=== PATIENT | female | born 1965 | race Caucasian/White ===

== ENCOUNTER 2017-10-03 08:29 | Outpatient (CLI) | payer BC | END 2017-10-03 08:30 | disposition home or self-care (01) | LOC: BICMAMMO 08:29 | PROVIDERS: ATTEND Family Medicine | DX: Z12.31 Encounter for screening mammogram for malignant neoplasm of breast (principal) | CPT/HCPCS: 77063; 77067 ==

== ENCOUNTER 2018-02-13 14:28 | Outpatient (CLI) | payer BC | END 2018-02-13 14:29 | disposition home or self-care (01) | LOC: BICULT 14:28 | PROVIDERS: ATTEND Family Medicine | DX: E04.1 Nontoxic single thyroid nodule (principal) | CPT/HCPCS: 76536 ==

== ENCOUNTER 2018-03-22 10:09 | Day surgery (SDC) | payer BC ==
[2018-03-21 13:19] VITALS: BMI 27.4
[2018-03-22] MEDS ORDERED: Sodium Bicarbonate 2.5 MEQ/5 ML VIAL ONE (10:22)
[2018-03-22] MEDS ORDERED: Lidocaine 1% PF 5 ML VIAL ONE (10:22)
[2018-03-22 11:01] VITALS: BP 123/80; TEMP 98.4
--- NOTE | 2018-03-22 11:58 | ULT ---
ULTRASOUND GUIDED FINE NEEDLE ASPIRATION THYROID: HISTORY: Thyroid nodule. COMPARISON: Thyroid ultrasound 02/13/18. FINDINGS: The patient is brought to the ultrasound suite. All questions were answered. The right neck was prepped and draped in normal sterile fashion. Approximately 2 mL of buffered Lidocaine was instilled into the superficial and deep soft tissues. U sing a 25-gauge needle, a total of 4 fine needle aspirations were performed. The patient tolerated t he procedure well without complication. IMPRESSION: Technically successful ultrasound-guided thyroid fine needle aspiration. POS: KATHERINE
== END 2018-03-22 11:10 | disposition home or self-care (01) ==
LOC: ULT 10:09
PROVIDERS: ATTEND Specialist
PROC: 0G9K3ZX Drainage of Thyroid Gland, Percutaneous Approach, Diagnostic (ICD-10-PCS; principal; 2018-03-22)
DX: E04.1 Nontoxic single thyroid nodule (principal); E11.9 Type 2 diabetes mellitus without complications; E78.5 Hyperlipidemia, unspecified; I10 Essential (primary) hypertension; F41.9 Anxiety disorder, unspecified; Z79.82 Long term (current) use of aspirin; Z79.4 Long term (current) use of insulin; Z79.899 Other long term (current) drug therapy
CPT/HCPCS: 10022; 76942; 88173; 88305; J2001

== ENCOUNTER 2019-03-04 07:50 | Outpatient (CLI) | payer BC ==
--- NOTE | 2019-03-04 08:20 | ULT ---
COMPLETE ABDOMEN ULTRASOUND INDICATION: Elevated LFTs TECHNIQUE: Grayscale, color Doppler and spectral Doppler were obtained of the abdomen. COMPARISON: None FINDINGS: Liver: Hyperechoic. No focal hepatic lesion. Main portal vein: Patent with appropriate hepatopedal flow Pancreas: Visualized aspects appeared normal. Gallbladder: Surgically absent. Common bile duct: 7 mm. Right kidney: The right kidney measured 11.9 x 5.8 x 5.1 cm cm. No focal renal lesion or hydronephros is is evident. Left kidney: The left kidney measured 11.5 x 5.4 x 5.4 cm cm. No focal renal lesion or hydronephrosis is demonstrated. Aorta and IVC: Appeared within normal limits. Spleen: 10.6 cmcm in length. No focal splenic lesion is evident. Free fluid: None. IMPRESSION: 1. Fatty liver. 2. Cholecystectomy.
== END 2019-03-04 07:51 | disposition home or self-care (01) ==
LOC: SCSULT 07:50
PROVIDERS: ATTEND Physician Assistant Medical
DX: K21.9 Gastro-esophageal reflux disease without esophagitis (principal); R94.5 Abnormal results of liver function studies; R19.7 Diarrhea, unspecified; R76.8 Other specified abnormal immunological findings in serum; R11.2 Nausea with vomiting, unspecified; K76.0 Fatty (change of) liver, not elsewhere classified; Z90.49 Acquired absence of other specified parts of digestive tract
CPT/HCPCS: 76700

== ENCOUNTER 2019-05-29 13:00 | Outpatient (CLI) | payer BC ==
--- NOTE | 2019-05-29 14:17 | ULT ---
THYROID ULTRASOUND 05/29/19 CLINICAL HISTORY: Prior FNA. FINDINGS: Reference made to 03/22/18 images. There is a dominant nodule of the right thyroid lobe, rounded in morphology, and solid in echotexture measuring approximately 3.9 cm. This is compared to approximately 3.5 cm on prior exam. No discrete left thyroid nodule. Isthmus is unremarkable. IMPRESSION: Slight size progression of previously sampled nodule of the right thyroid lobe. POS: [facility]
== END 2019-05-29 13:01 | disposition home or self-care (01) ==
LOC: BICULT 13:00
PROVIDERS: ATTEND Otolaryngology Plastic Surgery within the Head & Neck
DX: E04.1 Nontoxic single thyroid nodule (principal)
CPT/HCPCS: 76536

== ENCOUNTER 2019-06-25 06:49 | Day surgery (SDC) | payer BC ==
[2019-06-24 13:34] VITALS: BMI 28.7
[2019-06-25] MEDS ORDERED: Lidocaine 1% w/Epinephrine 1:100K 20 ML VIAL ONE (08:59)
[2019-06-25] MEDS ORDERED: Fentanyl 100 MCG/2 ML VIAL ONE ×2 (09:03→10:59)
[2019-06-25] MEDS ORDERED: Dexmedetomidine 200 MCG/2 ML VIAL ONE (09:04)
[2019-06-25] MEDS ORDERED: Hydrocodone-Acetamin 15 ML UDCUP ONE (12:48)
[2019-06-25] MEDS ORDERED: ePHEDrine 50 MG/ML VIAL ONE (18:57)
[2019-06-25] MEDS ORDERED: Dexamethasone 20 MG/5 ML VIAL ONE (18:57)
[2019-06-25] MEDS ORDERED: Rocuronium Bromide 10 MG/ML (10ML VIAL) ONE (18:57)
[2019-06-25] MEDS ORDERED: PROPOFOL 200 MG/20 ML VIAL ONE (18:57)
[2019-06-25] MEDS ORDERED: Succinylcholine Chloride 20 MG/ML 10 ml SYRINGE FS ONE (18:57)
[2019-06-25] MEDS ORDERED: Ondansetron PF 4 MG/2 ML Vial ONE (18:57)
[2019-06-25] MEDS ORDERED: PHENYLEPHRINE-NS 100 MCG/ML 10 ML SYRINGE ONE (18:57)
[2019-06-25] MEDS ORDERED: Lidocaine 1% PF 5 ML VIAL ONE (18:57)
--- NOTE | 2019-06-26 11:19 | OP ---
DATE OF PROCEDURE: 06/25/2019 PREOPERATIVE DIAGNOSIS: Right thyroid mass. POSTOPERATIVE DIAGNOSIS: Right thyroid mass. PROCEDURES PERFORMED: 1. Right hemithyroidectomy and isthmusectomy. 2. Intraoperative laryngeal nerve monitor. ESTIMATED BLOOD LOSS: 20 mL. COMPLICATIONS: None. ANESTHESIA: GETA. DESCRIPTION OF PROCEDURE: The patient was taken to the operating room, placed supine on the table, general endotracheal anesthesia was obtained by the anesthesia staff. Tube was secured in the midline of the upper lip. A shoulder roll was placed and the laryngeal electrodes of the endotracheal tube were confirmed to be between the vocal cords. Following this, the patient was prepped and draped in standard surgical fashion. A 5 mL of 1% lidocaine 1:100,000 epinephrine was injected in a eulogio-shaped fashion overlying the anticipated surgical bed. An incision was then made 2 cm above the clavicle and a skin crease through skin, subcutaneous tissue and the platysmal layer. Following this, subplatysmal dissection was performed superiorly to the level of thyroid notch and inferiorly to the clavicles. Following this, the strap muscles were identified and were in the midline and they were retracted laterally. The right thyroid lobe was immediately encountered and dissection was carried immediately adjacent to the right thyroid capsule. The right middle thyroid vein was suture ligated, thus the gland was further retracted anteriorly and medially. The superior thyroid vascular pedicle on the right was suture ligated immediately adjacent to the thyroid gland. Following this, the gland was then further displaced medially and anteriorly and the right recurrent laryngeal nerve was identified and was noted to be coursing approximately 15 degrees from the right tracheoesophageal groove. As the nerve was dissected to the cricothyroid joint, the attachments of the thyroid in this area were suture ligated and released. Following this, the right inferior thyroid artery was suture ligated. Following this, the attachment of the trachea and the thyroid gland were transected and the right thyroid lobe was then freed. Using a curved Allis clamp, the right thyroid lobe along with the isthmus was removed and was suture ligated. Following this, wound was irrigated, Aricept hemostatic packing was placed over the recurrent laryngeal nerve. A small drain was placed and the wound was closed with 3-0 Monocryl stitches for the strap muscles and the platysmal layer and 4-0 Monocryl stitches were used to close the subcuticular layer. Dermabond glue was placed on the skin. The patient tolerated the procedure well. Job ID: [id number]
--- NOTE | 2019-06-29 17:08 | EKG ---
Test Reason : PREOP Blood Pressure : / mmHG Vent. Rate : 090 BPM Atrial Rate : 090 BPM P-R Int : 158 ms QRS Dur : 084 ms QT Int : 380 ms P-R-T Axes : 037 039 050 degrees QTc Int : 464 ms Normal sinus rhythm Normal ECG When compared with ECG of 06-SEP-2007 06:39, No significant change was found Confirmed by JAKE LINO (2) on 06/29/2019 5:08:30 PM Referred By: DARWIN Confirmed By:JAKE LINO
== END 2019-06-26 13:15 | disposition home or self-care (01) ==
LOC: SDC 06:49
PROVIDERS: ATTEND Otolaryngology Plastic Surgery within the Head & Neck
PROC: 0GBH0ZZ Excision of Right Thyroid Gland Lobe, Open Approach (ICD-10-PCS; principal; 2019-06-25)
PROC: 0GBJ0ZZ Excision of Thyroid Gland Isthmus, Open Approach (ICD-10-PCS; principal; 2019-06-25)
DX: D34 Benign neoplasm of thyroid gland (principal); E11.9 Type 2 diabetes mellitus without complications; E78.5 Hyperlipidemia, unspecified; I10 Essential (primary) hypertension; Z79.4 Long term (current) use of insulin; Z79.82 Long term (current) use of aspirin; Z79.899 Other long term (current) drug therapy; Z91.048 Other nonmedicinal substance allergy status
CPT/HCPCS: 36416; 88307; 93005; 93010; J1100; J2001; J2405; J2704; J3010; J3490

== ENCOUNTER 2019-07-04 15:56 | Outpatient (CLI) | payer BC ==
--- NOTE | 2019-07-04 16:16 | MMO ---
Bilateral MAMMO Bilat Screen [facility]. CLINICAL HISTORY: Patient is 53 years old and is seen for screening. The patient has no family history of breast cancer. The patient has no personal history of cancer. VIEWS: The views performed were: bilateral craniocaudal with tomosynthesis and bilateral mediolateral oblique with tomosynthesis. FILMS COMPARED: The present examination has been compared to prior imaging studies performed at 10/03/2017, and at [facility] on 08/27/2012. This study has been interpreted with the assistance of computer-aided detection. MAMMOGRAM FINDINGS: The breasts are heterogeneously dense, which could obscure a lesion on mammography. There are no suspicious masses, suspicious calcifications, or new areas of architectural distortion. IMPRESSION: THERE IS NO MAMMOGRAPHIC EVIDENCE OF MALIGNANCY. A ROUTINE FOLLOW-UP MAMMOGRAM IN 1 YEAR IS RECOMMENDED. THE RESULTS OF THIS EXAM WERE SENT TO THE PATIENT. ACR BI-RADS Category 1 - Negative MAMMOGRAPHY NOTE: 1. A negative mammogram report should not delay a biopsy if a dominant of clinically suspicious mass is present. 2. Approximately 10% to 15% of breast cancers are not detected by mammography. 3. Adenosis and dense breasts may obscure an underlying neoplasm. Reported by: MICHELLE GONZALEZ MD Electonically Signed: [id number]
== END 2019-07-04 15:57 | disposition home or self-care (01) ==
LOC: BICMAMMO 15:56
PROVIDERS: ATTEND Family Medicine
DX: Z12.31 Encounter for screening mammogram for malignant neoplasm of breast (principal)
CPT/HCPCS: 77063; 77067

== ENCOUNTER 2021-01-07 10:50 | Outpatient (CLI) | payer BC | END 2021-01-07 10:51 | disposition home or self-care (01) | LOC: BICULT 10:50 | PROVIDERS: ATTEND Internal Medicine Endocrinology, Diabetes & Metabolism | DX: E03.9 Hypothyroidism, unspecified (principal); Z90.89 Acquired absence of other organs | CPT/HCPCS: 76536 ==

== ENCOUNTER 2021-01-07 10:56 | Outpatient (CLI) | payer BC | END 2021-01-07 10:57 | disposition home or self-care (01) | LOC: BICRAD 10:56 | PROVIDERS: ATTEND Family Medicine | DX: M79.622 Pain in left upper arm (principal); Z87.81 Personal history of (healed) traumatic fracture ==

== ENCOUNTER 2021-03-29 08:25 | Outpatient (CLI) | payer BC | END 2021-03-29 08:26 | disposition home or self-care (01) | LOC: BICMAMMO 08:25 | PROVIDERS: ATTEND Family Medicine | DX: Z12.31 Encounter for screening mammogram for malignant neoplasm of breast (principal) | CPT/HCPCS: 77063; 77067 ==

== ENCOUNTER 2022-05-02 09:03 | Outpatient (CLI) | payer BC | END 2022-05-02 09:04 | disposition home or self-care (01) | LOC: BICMAMMO 09:03 | PROVIDERS: ATTEND Family Medicine | DX: Z12.31 Encounter for screening mammogram for malignant neoplasm of breast (principal) | CPT/HCPCS: 77063; 77067 ==

== ENCOUNTER 2022-05-10 08:53 | Outpatient (CLI) | payer BC | END 2022-05-10 08:54 | disposition home or self-care (01) | LOC: BICMAMMO 08:53 | PROVIDERS: ATTEND Family Medicine | DX: N63.41 Unspecified lump in right breast, subareolar (principal); N64.89 Other specified disorders of breast | CPT/HCPCS: G0279 ==

== ENCOUNTER 2022-05-30 14:36 | Outpatient (CLI) | payer BC | END 2022-05-30 14:37 | disposition home or self-care (01) | LOC: BICULT 14:36 | PROVIDERS: ATTEND Family Medicine | DX: N39.0 Urinary tract infection, site not specified (principal) | CPT/HCPCS: 76770 ==

== ENCOUNTER 2023-08-06 13:41 | Outpatient (CLI) | payer BC | END 2023-08-06 13:42 | disposition home or self-care (01) | LOC: RAD 13:41 | PROVIDERS: ATTEND Nurse Practitioner Family | DX: R05.1 Acute cough (principal) | CPT/HCPCS: 71046; 87086 ==

== ENCOUNTER 2023-08-08 12:46 | Outpatient (CLI) | payer BC | END 2023-08-08 12:47 | disposition home or self-care (01) | LOC: BICCT 12:46 | PROVIDERS: ATTEND Nurse Practitioner Family | DX: M54.9 Dorsalgia, unspecified (principal); N20.0 Calculus of kidney | CPT/HCPCS: 74176 ==